=== PATIENT | male | born 1940 | race Caucasian/White ===

== ENCOUNTER 2016-06-21 13:16 | Emergency (ER) | payer MEDICARE, BC ==
--- NOTE | ~2016-06-21 | ER ---
PATIENT'S NAME: ROXANNA PEPE [facility] AGE: 76 Y [address] ROOM: [place] [address] LOCATION: ED ADMIT DATE: 06/21/2016 ER/Outpatient Report DISCHARGE DATE: 06/21/2016 FAMILY PHYSICIAN: Munir Simeon MD ATTENDING PHYSICIAN: Alfa Mares CHIEF COMPLAINT: Forgetfulness and unusual gait. HISTORY OF PRESENT ILLNESS: The patient was in the hospital in March and April for chest pain, PE, status post cardiac arrest and spent several weeks in a rehabilitation facility. He had been doing well until approximately 2 weeks ago. The states that he had a fall outside at that time and since then has had steady decline with more forgetfulness and more unusual motion. He is on warfarin because of his PE. He has had no other acute issues. He fell again about a week ago, but there have been no acute changes in the last 24-48 hours, just a continual slow decline. The patient has no specific complaints. He does note that he is walking different than he normally would. He has no other acute findings at this time. The family gives the bulk of the history. PAST MEDICAL HISTORY: Documented on the record and reviewed by me. SOCIAL HISTORY: Documented on the record and reviewed by me. MEDICATIONS: Documented on the record and reviewed by me. ALLERGIES: DOCUMENTED ON THE RECORD AND REVIEWED BY ME. REVIEW OF SYSTEMS: All systems were reviewed and negative except as noted in the HPI. PHYSICAL EXAMINATION: VITAL SIGNS: Blood pressure 134/71, pulse is 84, respiratory rate is 16, temperature 98.3, SpO2 is 94%, pain is 0/10. GENERAL: Age-appropriate male, sitting upright on the exam table, in no acute distress. NEURO: The patient is awake and alert. He is oriented to person and place, but not to the date. There are no focal deficits or asymmetry on exam. Reflexes appear to be 2+ bilateral in the upper and lower extremities. No gross visual changes, no cranial nerve deficits. He does walk with a PATIENT'S NAME: ROXANNA PEPE [facility] AGE: 76 Y [address] ROOM: [place] [address] LOCATION: [facility] ADMIT DATE: 06/21/2016 ER/Outpatient Report DISCHARGE DATE: 06/21/2016 FAMILY PHYSICIAN: Munir Simeon MD ATTENDING PHYSICIAN: Alfa Mares shuffling parkinsonian-type gait and slightly hunched-over. Sensation is grossly intact to light touch throughout. HEENT: Normocephalic, atraumatic. The eyes are PERRL. Extraocular movements are intact. Nasal mucosa is moist and pink. Oral mucosa is moist and pink. No erythema or exudates. NECK: Supple. Trachea is midline. CHEST: Heart is regular rate and rhythm with no murmurs. LUNGS: Clear to auscultation bilateral with no rhonchi, wheezes, or rales. ABDOMEN: Soft, nontender, and nondistended. No rebound or guarding. BACK: Nontender to palpation throughout. No CVA tenderness. EXTREMITIES: Warm and well perfused with no appreciable edema. No deformities. SKIN: Warm, dry, and intact. LABORATORY DATA AND X-RAYS: Head CT was obtained and negative per Radiology. Chest x-ray remains unchanged compared to study from March per my read. EKG reveals sinus rhythm, ventricular rate of 80 with normal intervals and axis. There is some significant artifact, but otherwise no significant morphologic changes. No ischemia when compared to prior EKG from 05/17/2016. Sodium 146, potassium 3.9, chloride is 113, CO2 is 23, BUN is 15, creatinine is 1.3, GFR is 53. LFTs are notable for a globulin of 4.5, alkaline phosphatase of 188. ALT and AST are 23 and 16 respectively. CK-MB is 1.5. Troponin is below threshold. CRP is 0.67. Free T4 is 1.0. TSH is 3.44. Procalcitonin is below threshold. WBC is 9.3, hemoglobin 12.7, and platelets are 331. INR is 2.4. Serum lactate is 1.9. Urinalysis: 25 leukocytes, 15 protein, no blood. Micro with rare wbc's, no rbc's, 0-2 epithelial cells, no bacteria. Culture is pending. IMPRESSION: 1. Slow progression with forgetfulness and gait changes. 2. Parkinsonian-like gait. 3. Slight hypovolemia with azotemia. 4. Mild hypernatremia, sodium 146. ED COURSE: The patient was evaluated as above. There are no signs of intracranial hemorrhage or significant infection. He does not have significant metabolic derangement, but does overall appear to be slightly hypovolemic with mild hypernatremia, slight azotemia, and slightly elevated lactate. The patient was reluctant to receive an IV and we encouraged oral hydration with water. Based on his current presentation and lack of acute changes, I do not think the patient needs to be hospitalized today. We did discuss that as an option; however, the patient is much more amenable to discharge and close followup. PATIENT'S NAME: ROXANNA PEPE [facility] AGE: 76 Y [address] ROOM: [place] [address] LOCATION: [facility] ADMIT DATE: 06/21/2016 ER/Outpatient Report DISCHARGE DATE: 06/21/2016 FAMILY PHYSICIAN: Munir Simeon MD ATTENDING PHYSICIAN: Alfa Mares For those reasons, I did contact Dr. Enid Fernando, on-call provider, for the patient's primary provider, Munir Simeon. The patient has an appointment at 2:45 on Saturday afternoon to see Dr. Simeon. The family and the patient were instructed to return immediately if there is any decline and he was encouraged to increase his free water intake. All questions were answered. The patient was discharged in good condition. MD ZITA ZAMORA/mani /[id number] d: 06/22/16 0833 t: 06/25/16 1733, OUTPATIENT REPORT
[~2016-06-21 13:16] MED LIST: ADVAIR INH; ASPIRIN LO-DOSE81 MG PO; B COMPLEX1 EACH PO; BYSTOLIC10 MG PO; CALCIUM 600 +1 EAC6 PO; EFFEXOR75 MG PO; METAMUCIL CAPSU1 CAP PO; NEURONTIN300 MG PO; NEXIUM40 MG PO; NITROSTAT0.4 MG SL; NORVASC5 MG PO; OCUVITE SOFTGE1 EACH PO; POTASSIUM99 M1 PO; PROCERA PO; SANCTURA 20MG20 MG PO; THEODUR PO; THERAGRAN-M1 TAB PO; VENLAFAXINE HCL75 MG PO; VITAMIN D-32000 UNI1 PO
[2016-06-21 14:08] LABS: BASOPHIL # 0.1 K/uL (0.0-0.2); BASOPHIL % 0.8 %; EOSINOPHIL # 0.4 K/uL (0.0-0.5); EOSINOPHIL % 4.3 %; HEMOGLOBIN 12.7 g/dL (11.0-16.0); IMMATURE GRANULOCYTE # 0.1 K/uL (0.0-0.3); IMMATURE GRANULOCYTE % 0.6 %; LYMPHOCYTE # 3.4 K/uL (0.8-4.0); LYMPHOCYTE % 36.5 %; MCH 28.9 pg (27.0-34.0); MCV 91.4 fl (83.0-98.0); MONOCYTE # 0.7 K/uL (0.0-1.0); MONOCYTE % 7.9 %; MPV 8.7 fl (9.4-12.4); NEUTROPHIL # (ANC) 4.7 K/uL (1.4-9.0); NEUTROPHIL % 49.9 %; NRBC % 0 /100WBC (0-0.00); RDW-CV 14.9 % (11.9-14.6); WBC 9.3 K/uL (4.0-11.0)
[2016-06-21 14:09] LABS: HEMATOCRIT 40.2 % (37.0-53.0); MCHC 31.6 gm/dL (32.0-36.5); PLATELET COUNT 331 K/uL (150-450)
[2016-06-21 14:14] LABS: INR - (THERAPEUTIC) 2.4 (0.9-1.1); PROTIME 27.6 SECONDS (9.6-11.1); PTT 35 SECONDS (25-32)
[2016-06-21 14:27] LABS: ALBUMIN 3.3 gm/dL (3.5-5.0); ALK PHOS 188 IU/L (33-138); ALT 23 IU/L (12-78); AST 16 IU/L (10-40); BLOOD UREA NITROGEN 15 mg/dL (6-24); CALCIUM 8.4 mg/dL (8.5-10.5); CHLORIDE 113 mMol/L (96-110); CO2 23 mMol/L (22-32); CREATININE 1.3 mg/dL (0.6-1.3); ESTIMATED GFR (MDRD EQUATION) 53; POTASSIUM 3.9 mMol/L (3.7-5.1); TOTAL BILIRUBIN 0.3 mg/dL (0.0-1.5); TOTAL PROTEIN 7.8 g/dL (6.0-8.4)
[2016-06-21 14:30] LABS: ANION GAP 13.9 (10.0-19.0); SODIUM 146 mMol/L (135-145)
[2016-06-21 15:45] LABS: BILIRUBIN URINE NEGATIVE (NEGATIVE); BLOOD URINE NEGATIVE /UL (NEGATIVE); COLOR URINE YELLOW (YELLOW); GLUCOSE URINE NEGATIVE (NEGATIVE); KETONE URINE NEGATIVE (NEGATIVE); LEUKOCYTES URINE 25 /UL (NEGATIVE); NITRITE URINE NEGATIVE (NEGATIVE); PROTEIN URINE 15 mg/dL (NEGATIVE); TURBIDITY URINE CLEAR (CLEAR); UROBILINOGEN URINE NORMAL (NORMAL)
[2016-06-21 15:52] LABS: BACTERIA URINE NEGATIVE (NEGATIVE); EPITHELIAL URINE 0-2 #/HPF (NEGATIVE); MUCUS URINE 1+ (NEGATIVE); RBC URINE NEGATIVE #/HPF (NEGATIVE); WBC URINE RARE #/HPF (NEGATIVE)
[2016-06-21 15:53] LABS: HYALINE CAST URINE 0-2 #/LPF (NEGATIVE)
[2016-06-28] MEDS ORDERED: DUONEB INH (09:44)
[2016-06-28] MEDS ORDERED: HUMIBID LA (MU600 MG PO (09:45)
[2016-06-28] MEDS ORDERED: PROTONIX40 MG PO (09:47)
[2016-06-28] MEDS ORDERED: LOPRESSOR50 MG PO (09:48)
[2016-06-28] MEDS ORDERED: DESYREL100 MG PO (09:48)
[2016-06-28] MEDS ORDERED: ZYPREXA15 MG PO (09:49)
[2016-06-28] MEDS ORDERED: COUMADIN ** IA5 MG PO (09:51)
[2016-06-28] MEDS ORDERED: FLOMAX0.4 MG PO (09:52)
[2016-06-28] MEDS ORDERED: ZESTRIL2.5 MG PO (09:52)
[2016-06-28] MEDS ORDERED: LIPITOR40 MG PO (09:53)
[2016-06-28] MEDS ORDERED: CPAP INH (09:58)
== END 2016-06-21 16:08 | disposition disaster alternative care site (69) ==
LOC: GMED 13:16
PROVIDERS: Emergency Medicine
DX: R41.3 Other amnesia (principal); E86.1 Hypovolemia; R79.89 Other specified abnormal findings of blood chemistry; E87.1 Hypo-osmolality and hyponatremia

== ENCOUNTER → 2016-06-28 | Outpatient (CLI) | payer MEDICARE, BC ==
[~2016-06-28] VITALS: Ht 180.3 cm; Wt 95.8 kg
[~2016-06-28] MED LIST changes: +ALBUTEROL2.5 MG/31 INH; +COUMADIN ** IA5 MG PO; +CPAP INH; +DESYREL100 MG PO; +DUONEB INH; +FLOMAX0.4 MG PO; +HUMIBID LA (MU600 MG PO; +LIPITOR40 MG PO; +LOPRESSOR50 MG PO; +LOVENOX 10100 MG/1 M SUB-Q; +PROTONIX40 MG PO; +PROVENTIL OR V6.7 GM INH; +TYLENOL EXTRA500 MG PO; +ZESTRIL2.5 MG PO; +ZYPREXA15 MG PO
--- NOTE | ~2016-06-28 | CATH ---
Cardiac Diagnostic Report Demographics Patient Name AFSHIN ESPINOZA Gender Male Date of 1940 Age 76 year(s) Patient Number [id number] Date of Study 06/28/2016 Visit Number [id number] [place] [id number] [address]t Accession Number [id number] BMI Referring Blanco Waters MD Primary Physician Physician Performing Efstratiou Secondary Physician Physician Jeanette Mckenna MD Diagnostic Efstratiou Assisting Physician Physician Jeanette Mckenna MD Interventional Physician Wax Molder Physician Findings and Conclusions Diagnostic Findings and Conclusion Borderline pulmonary hypertension. Diagnostic Recommendations Continue medical management. Procedure Description The patient was brought to the diagnostic cardiac catheterization-EP laboratory in the fasting, non-sedated state. Informed consent was obtained in the written and verbal form after the risks and benefits were explained. The patient had no further questions and agreed to proceed. The planned puncture-incision site(s) were shaved and prepped with ChloraPrep and draped in the usual sterile manner. Surface ECG rhythm, blood pressure measurement, and pulse oximetry were monitored throughout the procedure. Venous access. The access site was infiltrated with lidocaine. The vessel was entered with the Seldinger technique. A sheath was advanced into the vessel and used for catheter placement. Right heart catheterization. A Assumption Unruly catheter was successfully advanced to the right atrium, right ventricle, pulmonary artery, and pulmonary artery wedge position under fluoroscopic guidance. Resting hemodynamics were obtained. Measurements included pressures, arterial and venous oxygen saturation samples. The Assumption was removed without difficulty. Venous hemostasis was achieved. The patient was transferred to a regular nursing floor via cart accompanied by a nurse. The patient left the laboratory in stable condition. Diagnostic Cath Status: Elective Procedure Procedure Type Diagnostic procedure:Angiography:, RHC Indications: Abnormal Echo. The procedure was explained in detail to the patient. Risks, complications and alternative treatments were reviewed. Written consent was obtained. Medications Reviewed with Patient prior to Procedure. Procedure Data Procedure Date Date: 06/28/2016Start: 01:19 PMEnd: 01:40 PM Entry Locations - Antegrade Percutaneous access was performed through the Right Brachial vein (Primary location). A 6 Fr sheath was inserted. Hemostasis was successfully obtained using Manual Compression. Closure Comments: Pressure held for 10 minutes by RT. Jassi. Devices Used - A6 Fr. Balloon Wedge Catheterwas used for:Right heart cath. Contrast Material - Isovue 3700 ml Fluoroscopy Time: Diagnostic: 0:30 minutes. Total: 0:30 minutes. Fluoroscopy Dose: Diagnostic: 6 mGy. Total: 6 mGy. Estimated Blood Loss: 5 ml. Medical History Allergies - Other:(Strawberries, lactose). Risk Factors The patient risk factors include:hypertension, chronic lung disease, last creatinine: 1.3 mg/dl, dyslipidemia and former tobacco use. Admission Data Admission Date: 06/28/2016 Admission Time: 11:25 AM Admit Source: Other Insurance Payors: Medicare. Hemodynamics Condition: Rest Heart Rate: 72 bpm Oxygen Saturation +--------+-----+----+ +---+ + !Location!pCO2 !pO2 !% Saturation !Hgb!O2 Content ! +--------+-----+----+ +---+ + !PA ! ! !66.3 ! ! ! +--------+-----+----+ +---+ + !RA ! ! !66.8 ! ! ! +--------+-----+----+ +---+ + Pressures (mmHg) +-----+ + !Site !Pressure ! +-----+ + !RA !8/5 (4) ! +-----+ + !RV !38/ ,5 ! +-----+ + !PCW !16/15 (10) ! +-----+ + !PA !38/11 (24) ! +-----+ + Shunts Oxygen Values O2 Capacity 172.72 Signatures dtt: Mercedes Kulkarni dtd: 06/28/16 1319 Physician Self Edit
== END | disposition disaster alternative care site (69) ==
LOC: GPOC 09:00 → GCAT 11:25
PROC: 4A023N6 Measurement of Cardiac Sampling and Pressure, Right Heart, Percutaneous Approach (ICD-10-PCS; principal; 2016-06-28)
DX: I51.7 Cardiomegaly (principal); I10 Essential (primary) hypertension; G47.33 Obstructive sleep apnea (adult) (pediatric); I25.119 Atherosclerotic heart disease of native coronary artery with unspecified angina pectoris; E78.5 Hyperlipidemia, unspecified; I71.00 Dissection of unspecified site of aorta; F32.9 Major depressive disorder, single episode, unspecified; R26.0 Ataxic gait; M54.9 Dorsalgia, unspecified; G91.9 Hydrocephalus, unspecified; J98.4 Other disorders of lung; Z86.74 Personal history of sudden cardiac arrest; Z86.711 Personal history of pulmonary embolism; Z91.81 History of falling; Z87.891 Personal history of nicotine dependence; Z79.82 Long term (current) use of aspirin; Z79.899 Other long term (current) drug therapy; Z79.01 Long term (current) use of anticoagulants; Z98.2 Presence of cerebrospinal fluid drainage device
CPT/HCPCS: C1894; J1644; J2001; J7030

== ENCOUNTER → 2016-09-26 | Outpatient (CLI) | payer MEDICARE, BC | END | disposition disaster alternative care site (69) | LOC: GRAD 12:35 | DX: G91.9 Hydrocephalus, unspecified (principal); I51.7 Cardiomegaly ==

== ENCOUNTER → 2016-09-27 | Outpatient (CLI) | payer MEDICARE, BC | END | disposition disaster alternative care site (69) | LOC: GRAD 08:11 | PROC: BW11YZZ Fluoroscopy of Abdomen and Pelvis using Other Contrast (ICD-10-PCS; principal; 2016-09-27) | DX: G91.9 Hydrocephalus, unspecified (principal) | CPT/HCPCS: A9539 ==

== ENCOUNTER → 2016-10-05 | Outpatient (CLI) | payer MEDICARE, BC ==
[2016-10-05 14:32] LABS: INR - (THERAPEUTIC) 2.1 (0.92-1.07); PROTIME 22.2 SECONDS (9.8-11.4)
== END | disposition disaster alternative care site (69) ==
LOC: LGSMG 13:35
PROVIDERS: Student in an Organized Health Care Education/Training Program
DX: Z01.818 Encounter for other preprocedural examination (principal)

== ENCOUNTER → 2016-10-08 | Outpatient (CLI) | payer MEDICARE, BC | END | disposition disaster alternative care site (69) | LOC: GRAD 09:51 | DX: Z01.818 Encounter for other preprocedural examination (principal); R74.8 Abnormal levels of other serum enzymes; R79.89 Other specified abnormal findings of blood chemistry; Q61.02 Congenital multiple renal cysts ==

== ENCOUNTER → 2016-10-19 | Outpatient (CLI) | payer MEDICARE, BC | END | disposition disaster alternative care site (69) | LOC: LGSMG 16:17 | DX: N28.9 Disorder of kidney and ureter, unspecified (principal) ==

== ENCOUNTER → 2016-10-22 | Outpatient (CLI) | payer MEDICARE, BC | END | disposition disaster alternative care site (69) | LOC: GRAD 09:39 | DX: N28.9 Disorder of kidney and ureter, unspecified (principal); Q61.02 Congenital multiple renal cysts; N32.89 Other specified disorders of bladder; R79.89 Other specified abnormal findings of blood chemistry ==

== ENCOUNTER → 2016-11-01 | Outpatient (CLI) | payer MEDICARE, BC ==
[2016-11-01 12:56] LABS: INR - (THERAPEUTIC) 2.63 (0.92-1.07); PROTIME 27.9 SECONDS (9.8-11.4)
== END | disposition disaster alternative care site (69) ==
LOC: LGSMG 12:27
PROVIDERS: Student in an Organized Health Care Education/Training Program
DX: Z01.818 Encounter for other preprocedural examination (principal)

== ENCOUNTER 2016-11-07 11:00 | Inpatient (IN) | payer MEDICARE, BC ==
[~2016-11-07] VITALS: Ht 180.3 cm; Wt 101.2 kg
--- NOTE | ~2016-11-07 | OR ---
PATIENT'S NAME: ROXANNA PEPE [facility] AGE: 76 Y [address] ROOM: [address] [address] LOCATION: GICU ADMIT DATE: 11/20/2016 OR/Procedure Report DISCHARGE DATE: FAMILY PHYSICIAN: ESTELA LUNDBERG MD ATTENDING PHYSICIAN: Lesia Sanabria SURGEON: Lesia Sanabria MD SENIOR ANALYST PROGRAMMER: DATE OF PROCEDURE: 11/20/2016 PREOPERATIVE DIAGNOSIS: Normal-pressure hydrocephalus. POSTOPERATIVE DIAGNOSIS: Normal-pressure hydrocephalus. OPERATION PROPOSED AND PERFORMED: Revision of upper end of HISTOLOGY TECHNOLOGIST shunt. PREAMBLE: The patient had a HISTOLOGY TECHNOLOGIST shunt put in some years ago. Following the revision, he did very well and then he recently started deteriorating as far as his gait primarily was concerned. He had a shuntogram done which showed that the shunt was working, however, the valve was not programmable. Consequently, we elected to bring him in and electively change the valve to a programmable valve. DESCRIPTION OF PROCEDURE: Under general anesthesia, the right frontal region was shaved, prepped, and draped in the usual fashion. The old incision was opened. We then dissected out the shunt system and the valve and the ventricular catheter were one continuous system. So we had to cut the ventricular catheter from the previous valve and when we did this, we measured the opening pressure. The opening pressure was between 4 and 6 cm of water. We then disconnected the valve from the peritoneal catheter. We then programmed the programmable valve to the lowest we could get, which was 3 cm of water and after programming, we then connected it to the ventricular and peritoneal catheters without any difficulties. The valve was then sutured to the pericranium. The wound was irrigated with bacitracin irrigation and closed in 2 layers. The patient tolerated the procedure well and was taken to the recovery room. The programmable valve we used is the Codman programmable valve. MD CALVIN IBARRA/mani PATIENT'S NAME: ROXANNA PEPE [facility] AGE: 76 Y [address] ROOM: [address] [address] LOCATION: GICU ADMIT DATE: 11/20/2016 OR/Procedure Report DISCHARGE DATE: FAMILY PHYSICIAN: ESTELA LUNDBERG MD ATTENDING PHYSICIAN: Lesia Sanabria /[id number] d: 11/20/16 1555 t: 11/23/16 1258, OPERATIVE SUMMARY
[~2016-11-07 11:00] MED LIST changes: -ALBUTEROL2.5 MG/31 INH; -LOVENOX 10100 MG/1 M SUB-Q; -PROVENTIL OR V6.7 GM INH; -TYLENOL EXTRA500 MG PO
[2016-11-07] MEDS ORDERED: ALBUTEROL2.5 MG/31 INH (11:15)
[2016-11-07] MEDS ORDERED: PROVENTIL OR V6.7 GM INH (11:16)
[2016-11-07] MEDS ORDERED: TYLENOL EXTRA500 MG PO (11:23)
[2016-11-20] MEDS ORDERED: LOVENOX 10100 MG/1 M SUB-Q (09:36)
[2016-11-20 09:47] LABS: INR - (THERAPEUTIC) 0.96 (0.92-1.07); PROTIME 10.1 SECONDS (9.8-11.4)
--- NOTE | 2016-11-21 04:06 | NUR ---
Significant Event: AOX3, FORGETFUL AT TIMES. REORIENTS EASILY. PUPILS 2MM/BRISK. NO NEURO DEFICITS NOTED. DENIES ANY NUMBNESS OR TINGLING. VSS ON 1-2L O2 PER NASAL CANNULA. IV TO L)WRIST, SL. DRESSING TO R)LATERAL FOREHEAD. DRSG INTACT WITH SOME SHADOW DRAINAGE. HAS DENIED PAIN THIS SHIFT. DIET AND ACTIVITY TOLERATED. 1ASSIST WITH GAITBELT AND WALKER. Follow up:
--- NOTE | 2016-11-21 13:49 | NUR ---
Had attempted to see patient and earlier this morning but doctor in the room. Checked back at 1330 and patient alone in room. Introduced self/role to him, he was in personal clothes and waiting for his to bring the car. As we talked apparent that patient has confusion. Spoke to nursing, no discharge needs.
--- NOTE | 2016-11-21 15:08 | NUR ---
Significant Event: Patient still forgetful but this is baseline for patient per and . Dressing changed to head before discharge. IV disontinued prior to discharge. Patient dc'd home with at 1405. Follow up:
== END 2016-11-21 14:07 | disposition disaster alternative care site (69) | DRG 31 ==
LOC: GNTU 11-20 09:01 → GICU 11-20 16:18
PROVIDERS: ADMIT Neurological Surgery
PROC: 00W60JZ Revision of Synthetic Substitute in Cerebral Ventricle, Open Approach (ICD-10-PCS; principal; 2016-11-20)
DX: T85.890A Other specified complication of nervous system prosthetic devices, implants and grafts, initial encounter (principal); I71.01 Dissection of thoracic aorta; G91.2 (Idiopathic) normal pressure hydrocephalus; D68.51 Activated protein C resistance; N18.3 Chronic kidney disease, stage 3 (moderate); G21.19 Other drug induced secondary parkinsonism; R26.9 Unspecified abnormalities of gait and mobility; I12.9 Hypertensive chronic kidney disease with stage 1 through stage 4 chronic kidney disease, or unspecified chronic kidney disease; Z79.01 Long term (current) use of anticoagulants; J44.9 Chronic obstructive pulmonary disease, unspecified; J45.909 Unspecified asthma, uncomplicated; G47.33 Obstructive sleep apnea (adult) (pediatric); I25.10 Atherosclerotic heart disease of native coronary artery without angina pectoris; N40.0 Benign prostatic hyperplasia without lower urinary tract symptoms; F32.9 Major depressive disorder, single episode, unspecified; K21.9 Gastro-esophageal reflux disease without esophagitis; Z86.711 Personal history of pulmonary embolism; Z79.899 Other long term (current) drug therapy
CPT/HCPCS: A9270; J0690; J2001; J7030; J7120

== ENCOUNTER 2016-11-22 22:01 | Observation (INO) | payer MEDICARE, BC ==
[~2016-11-22] VITALS: Ht 180.3 cm; Wt 97.7 kg
--- NOTE | ~2016-11-22 | ER ---
PATIENT'S NAME: ROXANNA PEPE [facility] AGE: 76 Y [address] ROOM: [place] [address] LOCATION: ED ADMIT DATE: 11/22/2016 ER/Outpatient Report DISCHARGE DATE: FAMILY PHYSICIAN: Matthias Dobbins MD ATTENDING PHYSICIAN: Maurisio Johnson Admission date and time documented in the medical record. I saw the patient at 2215 hours. CHIEF COMPLAINT: Confusion, incontinence, low-grade fever. HISTORY OF PRESENT ILLNESS: This patient is a 76-year-old male, who according to the has been confused the whole day. He has been incontinent of urine. He has had a low- grade fever that was noted tonight. Had a DOUGHNUT MAKER shunt revision Saturday around on. Got out of the hospital on Saturday. Little unsteady on his feet, but no lightheadedness, dizziness, syncope or near syncope. No fall or trauma. No recent coughs, colds, or flus. No chest pain, shortness of breath. No abdominal pain, nausea, vomiting, diarrhea, or urinary frequency, urgency, or dysuria. No joint or muscle swelling, redness, or pain. No skin eruptions or rash. The patient does have a history of pulmonary embolism and obstructive sleep apnea. He has been code blue x2. Has had some past history of delirium with a remote history of tobacco use. No history of CVA, TIA, or seizure disorder. No depression, anxiety, or psychosis. No endocrine problems. HOME MEDICATIONS: See attached medication list. ALLERGIES: NONE. SOCIAL HISTORY: Nonsmoker, nondrinker. SIGNIFICANT PAST MEDICAL HISTORY: Atherosclerotic ischemic heart disease with coronary artery disease, obstructive sleep apnea, normal pressure, hydrocephalus, hypertension, pulmonary hypertension, chronic anticoagulation with Coumadin, pulmonary embolism, code blue x2, aortic dissection, acute on chronic respiratory failure, benign prostatic hypertrophy, factor V Leiden deficiency, delirium, remote tobacco abuse. OPERATIONS: IVC filter placement, DOUGHNUT MAKER shunt placement with revision. PATIENT'S NAME: ROXANNA PEPE [facility] AGE: 76 Y [address] ROOM: [place] [address] LOCATION: ED ADMIT DATE: 11/22/2016 ER/Outpatient Report DISCHARGE DATE: FAMILY PHYSICIAN: Matthias Dobbins MD ATTENDING PHYSICIAN: Maurisio Johnson REVIEW OF SYSTEMS: All systems reviewed by me are negative with the exception of those discussed in the history of present illness. PHYSICAL EXAMINATION: VITAL SIGNS: Temperature 99.2 tympanic, pulse 82, respirations 18, blood pressure 131/68, O2 saturation on room air is 92%. HEAD: Normocephalic. Incisional wound on the right top of the head is not red, not swollen, not hot to the touch. There is no drainage. EYES: Extraocular muscles intact. PERRL. EARS: Clear TMs bilaterally. NOSE: Clear. THROAT: Clear. Mucous membranes moist. NECK: No nuchal rigidity. No thyromegaly or cervical lymphadenopathy. Full range of motion. No tenderness. SPINE: Nontender. No deformity. LUNGS: Clear. Good air flow. No rales, rhonchi, or wheezes. HEART: Regular. Pulses are palpable. ABDOMEN: Soft, nondistended, nontender. Good bowel tones. No organomegaly or abnormal mass palpable. EXTREMITIES: No peripheral edema, cyanosis, or deformity. NEURO: Cranial nerves appear to be intact. No lateralizing sign. The patient is awake, cooperative, little bit confused at times, but otherwise follows commands and answers most of my questions in appropriate manner. SKIN: Clear. IMAGING DATA: Chest x-ray showed no acute infiltrate or changes. We will review x-ray with radiologist. CT scan of the head showed no acute changes. Had generalized distention of his ventricular system that is unchanged. CT scan was read by Radiology, see dictated transcribed report. EKG showed sinus rhythm. No acute ST elevation, ischemic change, or arrhythmia. LABORATORY DATA: White count 10,000, 55 segs, 28 lymphs, 11 monos, 4 eos, 1 baso. Hemoglobin 11.9 with hematocrit 36.1, platelet count is 337,000. Sed rate is elevated at 93. CRP was elevated at 5.46. PTT was 24. Protime is 11.1 with an INR 1.08. CMS was normal except for an elevated glucose of 142, elevated creatinine 1.4, low GFR of 48. Magnesium was 2.1. CPK was 41. Point of care cardiac enzymes were normal. Arterial blood gases showed a pH of 7.43, pCO2 42, pO2 of 66 and O2 saturation of 93%. IMPRESSION: 1. Altered mental status with confusion, etiology uncertain. PATIENT'S NAME: ROXANNA PEPE [facility] AGE: 76 Y [address] ROOM: [place] [address] LOCATION: [facility] ADMIT DATE: 11/22/2016 ER/Outpatient Report DISCHARGE DATE: FAMILY PHYSICIAN: Matthias Dobbins MD ATTENDING PHYSICIAN: Maurisio Johnson 2. Hypoxia with pO2 of 66 on room air with a history of acute on chronic respiratory failure. 3. Normal-pressure hydrocephalus, recently 2-day post DOUGHNUT MAKER shunt revision. 4. History of atherosclerotic ischemic heart disease with coronary artery disease. 5. Hypertension. 6. Pulmonary hypertension. 7. Past history of pulmonary embolism. The patient has IVC filter in place. He is on chronic anticoagulation with Coumadin. PLAN: Discussed the patient with Dr. Sanabria, neurosurgeon, who did his procedure. Dr. Sanabria wanted him admitted by Hospitalist for observation. Discussed the patient with Dr. Nesbitt, hospitalist. The patient will be admitted to the hospital for observation. Discussion ensued with the patient's family and himself regarding my findings and recommendations, they understand. MD ALONSO MIGUEL/reil /[id number] d: 11/23/16 0157 t: 11/23/16 1818, OUTPATIENT REPORT
--- NOTE | ~2016-11-22 | HP ---
PATIENT'S NAME: ROXANNA PEPE [facility] AGE: 76 Y [address] ROOM: [id number] [place], [place] [address] LOCATION: [facility] ADMIT DATE: 11/23/2016 History & Physical DISCHARGE DATE: FAMILY PHYSICIAN: ESTELA LUNDBERG MD ATTENDING PHYSICIAN: BRENDA JOHN DATE OF SERVICE: CHIEF COMPLAINT: Altered mental status. HISTORY OF PRESENT ILLNESS: This is a 76-year-old gentleman with a past medical history of normal pressure hydrocephalus, INSEAM TRIMMER shunt placed in 2012, revision in 2013 and one day ago by Dr. Sanabria on 11/21/2016. Presented to the emergency department with altered mental status which was noticed by the today when he was not being himself after the dinner. She also noted some diaphoresis on him. She also noted having unstable gait and more frequent bladder accident than usual. On my encounter, Roxanna is alert and oriented x2, he said that he does not feel bad at all. He says he does have some headache. Does not complain of any neck pain or any neck stiffness. Does not complain of any chest pain, any shortness of breath, any abdominal pain, any burning on urination, or any extremity swelling. REVIEW OF SYSTEMS: All other systems were reviewed and were negative except for what is mentioned in the HPI. PAST MEDICAL HISTORY: Pulmonary embolism leading to cardiac arrest. History of bilateral embolism, long-term anticoagulation. Obstructive sleep apnea; type B aortic dissection; hypertension; chronic respiratory failure; normal pressure hydrocephalus, status post INSEAM TRIMMER shunting; urinary tract infection in the past; BPH; delirium; factor V Leiden. MEDICATIONS: Being reconciled right now. SOCIAL HISTORY: Lives with . Previous history of smoking. No ongoing toxic habits. FAMILY HISTORY: Negative for any stroke. Father had bypass surgery. ALLERGIES: PATIENT'S NAME: ROXANNA PEPE [facility] AGE: 76 Y [address] ROOM: [id number] [place] [id number] LOCATION: [facility] ADMIT DATE: 11/23/2016 History & Physical DISCHARGE DATE: FAMILY PHYSICIAN: ESTELA LUNDBERG MD ATTENDING PHYSICIAN: BRENDA JOHN NO KNOWN DRUG ALLERGIES. PHYSICAL EXAMINATION: VITAL SIGNS: Blood pressure 120/58, respiratory rate 18, temperature 97.3, pulse 76. GENERAL: Alert and oriented x2. HEENT: Head showed recent scar christel for the valve replacement of the INSEAM TRIMMER shunt. Tender to touch in the surgical incision site. No pus can be expressed. Eyes; nonicteric, no pallor. Oropharynx, moist mucous membranes. CARDIOVASCULAR: S1 and S2. No murmurs, gallops, or rubs. LUNGS: Clear to auscultation bilaterally. ABDOMEN: Soft, nontender, nondistended. Bowel sounds present. EXTREMITIES: No clubbing, cyanosis, or edema. PSYCH: Normal affect, mood, and speech. NEURO: No neck stiffness present. Cranial nerves 2 through 12 intact. No motor or sensory deficit noted. MUSCULOSKELETAL: No muscle tenderness or joint swelling noted. ENDOCRINE: No thyromegaly or myxedema noted. LABORATORY DATA: Initial lab work done in the emergency department was not impressive for any troponin elevation. CBC was unremarkable. BMP showed mild creatinine elevation up to 1.4. Alkaline phosphatase was elevated at 175. ESR 93. INR done today showed 1.06. Anticoagulation was recently interrupted for the valve replacement of the INSEAM TRIMMER shunt. ASSESSMENT AND PLAN: 1. Altered mental status, unknown etiology at this point. CAT scan was done, which did show dilated ventricles, but they are unchanged from the previous imaging study done. No other infectious markers are present at this point. Low-grade temperature. We will obtain a procalcitonin level. We will have Dr. Sanabria see him in the morning. Monitor his vitals. 2. Pulmonary embolism. He has IVC filter placed and we will resume the anticoagulation after the patient has seen Dr. Sanabria in the morning. 3. Hypertension. Continue home medications. 4. Chronic respiratory failure secondary to obstructive sleep apnea. We will continue home O2. 5. The patient is full code. SCDs. Seizure as well as fall precautions. BRENDA JOHN MD PATIENT'S NAME: ROXANNA PEPE [facility] AGE: 76 Y [address] ROOM: [place] [address] LOCATION: [facility] ADMIT DATE: 11/23/2016 History & Physical DISCHARGE DATE: FAMILY PHYSICIAN: ESTELA LUNDBERG MD ATTENDING PHYSICIAN: BRENDA JOHN /[id number] D: [id number] T: [id number] HISTORY & PHYSICAL
--- NOTE | ~2016-11-22 | DS ---
PATIENT'S NAME: ROXANNA PEPE [facility] AGE: 76 Y [address] ROOM: [id number] [place], [place] [id number] LOCATION: [facility] ADMIT DATE: 11/23/2016 Discharge Summary DISCHARGE DATE: 11/25/2016 FAMILY PHYSICIAN: Matthias Dobbins MD ATTENDING PHYSICIAN: Marquise Nesbitt PRIMARY DIAGNOSES: 1. Acute encephalopathy. 2. Normal-pressure hydrocephalus, status post recent shunt revision. 3. Factor V Leiden. 4. History of pulmonary embolism, status post IVC filter. 5. Long-term anticoagulation with warfarin. 6. Obstructive sleep apnea. 7. Essential hypertension. 8. Chronic gait instability. 9. Acute kidney injury. OPERATIONS AND PROCEDURES: None. HISTORY OF PRESENTING ILLNESS AND REASON FOR ADMISSION: Please refer to the H and P dictated on 11/23/2016. HOSPITAL COURSE: The patient was admitted to the hospital as noted above after an emergency room evaluation for acute encephalopathy. He had undergone shunt revision under the direction of Dr. Sanabria on 11/20/2016. Please see the admitting H and P for details. Briefly, he was admitted for observation. His clinical condition was stable over the course of his hospital stay. Dr. Sanabria did consult and felt that no surgical intervention would be warranted. Blood cultures were obtained and remained negative over the course of his hospital stay. He did not demonstrate any fevers either. He did receive physical therapy and occupational therapy evaluations, and although he did demonstrate a little bit of impulsivity, he was generally cooperative. By the third day of his hospital stay, it was felt he was essentially back at baseline and ready for discharge. DISCHARGE INSTRUCTIONS: DIET: Regular, as tolerated. ACTIVITY: As tolerated. MEDICATIONS: PATIENT'S NAME: ROXANNA PEPE [facility] AGE: 76 Y [address] ROOM: [id number] [place], [place] [id number] LOCATION: [facility] ADMIT DATE: 11/23/2016 Discharge Summary DISCHARGE DATE: 11/25/2016 FAMILY PHYSICIAN: Matthias Dobbins MD ATTENDING PHYSICIAN: Marquise Nesbitt 1. Amlodipine 5 mg p.o. q.a.m. 2. Atorvastatin 40 mg p.o. q.h.s. 3. Calcium carbonate with vitamin D 600 mg p.o. daily. 4. Vitamin D3 at 2000 units p.o. daily. 5. Gabapentin 300 mg p.o. b.i.d. 6. Metoprolol 50 mg p.o. b.i.d. 7. Olanzapine 7.5 mg p.o. daily. 8. Protonix 40 mg p.o. daily. 9. Psyllium 5 cap p.o. b.i.d. 10. Tamsulosin 0.4 mg p.o. q.a.m. 11. Trazodone 50 mg p.o. q.h.s. 12. Effexor 75 mg p.o. b.i.d. 13. Coumadin 5 mg p.o. daily. 14. Ocuvite daily. 15. Nitroglycerin sublingually p.r.n. 16. DuoNeb q.3 hours p.r.n. wheezing or dyspnea. 17. Albuterol HFA 2 puffs p.o. daily p.r.n. wheezing or dyspnea. 18. Acetaminophen 1000 mg p.o. q.6 hours p.r.n. pain or fever. 19. CPAP at h.s. FOLLOWUP: He will follow up with Dr. Dobbins on , 11/29/2016. He will have repeat PT and INR with Dr. Dobbins at the followup appointment on . No Lovenox bridging (IVC filter in place). He will follow up with Dr. Sanabria in 2 to 3 weeks. He will have outpatient physical therapy and occupational therapy in [place]. CONDITION ON DISCHARGE: Fair. Total time spent on discharge process is 45 minutes. MD SHI ESPARZA/mani /[id number] d: 11/25/16 1225 t: 11/27/16 1729, DISCHARGE SUMMARY
[~2016-11-22 22:01] MED LIST changes: +ALBUTEROL2.5 MG/31 INH; +LOVENOX 10100 MG/1 M SUB-Q; +PROVENTIL OR V6.7 GM INH; +TYLENOL EXTRA500 MG PO
[2016-11-22 23:03] LABS: BASOPHIL % 0.4 %; EOSINOPHIL # 0.4 K/uL (0.0-0.5); EOSINOPHIL % 3.6 %; HEMATOCRIT 36.1 % (37.0-53.0); HEMOGLOBIN 11.9 g/dL (11.0-16.0); IMMATURE GRANULOCYTE # 0.1 K/uL (0.0-0.3); IMMATURE GRANULOCYTE % 1.1 %; LYMPHOCYTE # 2.9 K/uL (0.8-4.0); LYMPHOCYTE % 28.4 %; MCH 31.1 pg (27.0-34.0); MCV 94.3 fl (83.0-98.0); MONOCYTE # 1.1 K/uL (0.0-1.0); MONOCYTE % 11.4 %; MPV 8.9 fl (9.4-12.4); NEUTROPHIL # (ANC) 5.5 K/uL (1.4-9.0); NEUTROPHIL % 55.1 %; NRBC % 0 /100WBC (0-0.00); PLATELET COUNT 337 K/uL (150-450); RBC 3.83 M/uL (3.50-5.50)
[2016-11-22 23:10] LABS: INR - (THERAPEUTIC) 1.06 (0.92-1.07); PROTIME 11.1 SECONDS (9.8-11.4); PTT 24 SECONDS (25-32)
[2016-11-22 23:11] LABS: BICARBONATE 27.9 mmol/L (18.0-23.0); PCO2 42 mmHg (35-45); PO2 66 mmHg (80-90)
[2016-11-22 23:19] LABS: ALBUMIN 2.7 gm/dL (3.5-5.0); ALK PHOS 175 IU/L (33-138); ALT 29 IU/L (12-78); ANION GAP 10.2 (10.0-19.0); AST 23 IU/L (10-40); BLOOD UREA NITROGEN 19 mg/dL (6-24); CALCIUM 8.5 mg/dL (8.5-10.5); CHLORIDE 108 mMol/L (96-110); CO2 25 mMol/L (22-32); CPK 41 IU/L (35-332); CREATININE 1.4 mg/dL (0.6-1.3); MAGNESIUM 2.1 mg/dL (1.8-2.6); POTASSIUM 4.2 mMol/L (3.7-5.1); SODIUM 139 mMol/L (135-145); TOTAL BILIRUBIN 0.2 mg/dL (0.0-1.5); TOTAL PROTEIN 7.6 g/dL (6.0-8.4)
[2016-11-23 07:41] LABS: BASOPHIL # 0.1 K/uL (0.0-0.2); BASOPHIL % 0.7 %; EOSINOPHIL # 0.4 K/uL (0.0-0.5); HEMATOCRIT 37.8 % (37.0-53.0); HEMOGLOBIN 12.5 g/dL (11.0-16.0); IMMATURE GRANULOCYTE # 0.1 K/uL (0.0-0.3); IMMATURE GRANULOCYTE % 1.3 %; LYMPHOCYTE # 3.3 K/uL (0.8-4.0); LYMPHOCYTE % 35.5 %; MCH 31.5 pg (27.0-34.0); MCHC 33.1 gm/dL (32.0-36.5); MCV 95.2 fl (83.0-98.0); MONOCYTE # 1.1 K/uL (0.0-1.0); MONOCYTE % 11.7 %; MPV 8.8 fl (9.4-12.4); NEUTROPHIL # (ANC) 4.4 K/uL (1.4-9.0); NEUTROPHIL % 46.8 %; NRBC % 0 /100WBC (0-0.00); PLATELET COUNT 316 K/uL (150-450); RBC 3.97 M/uL (3.50-5.50); RDW-CV 13.1 % (11.9-14.6); WBC 9.4 K/uL (4.0-11.0)
[2016-11-23 07:51] LABS: INR - (THERAPEUTIC) 1.11 (0.92-1.07); PROTIME 11.7 SECONDS (9.8-11.4)
[2016-11-23 07:54] LABS: ANION GAP 9.1 (10.0-19.0); CREATININE 1.3 mg/dL (0.6-1.3); POTASSIUM 4.1 mMol/L (3.7-5.1)
[2016-11-24 07:55] LABS: INR - (THERAPEUTIC) 1.14 (0.92-1.07)
[2016-11-25 06:08] LABS: PROTIME 14.5 SECONDS (9.8-11.4)
[2016-11-25 06:10] LABS: INR - (THERAPEUTIC) 1.38 (0.92-1.07)
== END 2016-11-25 13:20 | disposition disaster alternative care site (69) ==
LOC: GMED 22:01 → GICU 11-23 01:50
PROVIDERS: Emergency Medicine; ADMIT Internal Medicine
DX: G93.40 Encephalopathy, unspecified (principal); G91.2 (Idiopathic) normal pressure hydrocephalus; D68.51 Activated protein C resistance; G47.33 Obstructive sleep apnea (adult) (pediatric); I10 Essential (primary) hypertension; N17.9 Acute kidney failure, unspecified; R26.9 Unspecified abnormalities of gait and mobility; R41.82 Altered mental status, unspecified; J96.11 Chronic respiratory failure with hypoxia; I25.10 Atherosclerotic heart disease of native coronary artery without angina pectoris; I27.2 Other secondary pulmonary hypertension; I77.810 Thoracic aortic ectasia; Z79.01 Long term (current) use of anticoagulants; Z86.711 Personal history of pulmonary embolism; Z87.891 Personal history of nicotine dependence; Z98.2 Presence of cerebrospinal fluid drainage device; Z79.899 Other long term (current) drug therapy
CPT/HCPCS: A9270; G0378; G8978; G8979; G8980; J7120

== ENCOUNTER → 2016-12-10 | Outpatient (CLI) | payer MEDICARE, BC | LOC: GRAD 15:30 | DX: I62.00 Nontraumatic subdural hemorrhage, unspecified (principal) ==